=== PATIENT | female | born 1985 | race Caucasian/White ===

== ENCOUNTER 2016-09-06 17:35 | Emergency (ER) | payer SELFPAY ==
[~2016-09-06] VITALS: Ht 157.5 cm; Wt 67.3 kg
[~2016-09-06 17:35] MED LIST: IBUP600 PO
[2016-09-06 17:37] VITALS: BP 157/98; PULSE 98; RESP 16; TEMP 97.8; O2SAT 98
--- NOTE | 2016-09-06 18:12 | PD ---
Physical Exam Date Seen by Provider: Sep 06, 2016 Time Seen by Provider: 18:11 Narrative 31 yo female here for evaluation of left sided numbness, tingling to the left arm and leg. Going on for 5 days. Developed some occassional left sided "rib and breast" pain on and off. No other medical issues. No trauma. no history of this in the past. Vitals are stable in triage. Awaiting Bed placement. Data Data Last Documented VS Vital Signs Date Time Temp Pulse Resp B/P Pulse Ox O2 Delivery O2 Flow Rate FiO2 09/06/16 17:37 97.8 98 16 157/98 98 MDM Medical Record Reviewed: Yes Supervised Visit with TEX: No Trent Stephens Sep 06, 2016 18:12
[2016-09-06 19:56] VITALS: BP 147/95; PULSE 74; RESP 16; TEMP 98.1; O2SAT 100
[2016-09-06] MEDS ORDERED: IBUPROFEN 800 MG TAB PO ONE (20:15)
[2016-09-06] MEDS ORDERED: IBUP800T23 PO (20:16)
--- NOTE | 2016-09-06 20:17 | PD ---
HPI . Numbness and tingling of the left arm and leg Chief Complaint: Numbness/Tingling Time Seen by Provider: 19:59 Travel History International Travel<30 days: No Contact w/Intl Traveler<30days: No Traveled to known affect area: No History of Present Illness HPI Patient presents with chief complaint of left-sided numbness and tingling. Onset was a week ago. No modifying factors. She reports the onset of some left chest pain 2 days ago. It is a sharp pain underneath her left breast which is exacerbated by movement and relieved by rest. She rates the pain as 10/10. She states that she took 2 Tylenol for it yesterday but nothing today. PFSH Past Medical History Medical History: Denies Significant Hx ADHD: Yes Diminished Hearing: No Immunizations Current: No ?: Not LMP: 09/03/2016 : 0 Para: 1 Past Surgical History Surgical History: No Previous Surgery Social History Alcohol Use: Yes (occassionally) Tobacco Use: No Substance Use: No Allergies-Medications (Allergen,Severity, Reaction): Coded Allergies: No Known Allergies (Verified , 03/08/15) Reported Meds & Prescriptions Reported Meds & Active Scripts Active Ibuprofen 800 Mg Tab 800 Mg PO Q8H PRN Review of Systems Except as stated in HPI: all other systems reviewed are Neg General / Constitutional: No: Fever, Chills Cardiovascular: Positive: Chest Pain or Discomfort Respiratory: No: Shortness of Breath Gastrointestinal: No: Nausea, Vomiting Neurologic: Positive: Paresthesia, No: Weakness Physical Exam Narrative GENERAL: Awake and alert and in no acute distress. SKIN: Warm and dry. HEAD: Atraumatic. Normocephalic. EYES: Pupils equal and round. Extraocular movements are intact. ENT: No nasal bleeding or discharge. Mucous membranes pink and moist. NECK: Trachea midline. Neck is supple. CARDIOVASCULAR: Regular rate and rhythm. Heart sounds normal. RESPIRATORY: No accessory muscle use. Lungs are clear with full air movement throughout. Left chest wall has point tenderness beneath and lateral to the left breast. GASTROINTESTINAL: Abdomen soft, non-tender, nondistended. MUSCULOSKELETAL: No obvious deformities. No edema. NEUROLOGICAL: Awake and alert. No obvious cranial nerve deficits. Motor grossly within normal limits. Normal speech. She has full and equal muscle strength in all muscle groups of the upper extremities. PSYCHIATRIC: Appropriate mood and affect; insight and judgment normal. Data Data Last Documented VS Vital Signs Date Time Temp Pulse Resp B/P Pulse Ox O2 Delivery O2 Flow Rate FiO2 09/06/16 19:56 98.1 74 16 147/[address] Brain W/O Iv Contrast(Rout) (09/06/16 20:05) Ibuprofen (Motrin) (09/06/16 20:15) MDM Medical Decision Making Medical Screen Exam Complete: Yes Emergency Medical Condition: Yes Differential Diagnosis My differential diagnosis of paresthesias includes but is not limited to anxiety , radiculopathy, peripheral neuropathy, peripheral vascular disease, compartment syndrome Narrative Course Patient presents for the evaluation of left-sided numbness and left-sided chest wall pain. The left-sided numbness is been present for a week. The left-sided chest wall pain has been present for 2 days. She is basically not taken anything for the pain. Her neurological exam is intact. Her heart and lung exam is marked trouble only for reproducible left-sided chest wall tenderness. I have ordered ibuprofen for her chest wall pain. I have ordered a CT of her head although I don't really expect to find anything abnormal. CT>>Normal examination. Diagnosis Primary Impression: Left-sided chest wall pain Additional Impression: Paresthesia of left upper and lower extremity Referrals: [facility] Dept. Patient Instructions: Chest Wall Pain (ED), General Instructions, Paresthesia ( ED) Med/Other Pt SpecificInfo: Prescription(s) given Scripts Ibuprofen 800 Mg Nun316 Mg PO Q8H PRN (Pain/Inflammation) #60 TAB Ref 0 Prov:Marium Cordero MD 09/06/16 Disposition: DISCHARGE HOME Condition: Stable Marium Cordero MD Sep 06, 2016 20:17
--- NOTE | 2016-09-06 21:14 | RADRPT ---
EXAM DATE/TIME: 09/06/2016 20:50 [facility] COMPARISON: No previous studies available for comparison. INDICATIONS : Patient complains of left arm and leg numbness for 5 days. RADIATION DOSE: 56.35 CTDIvol (mGy) MEDICAL HISTORY : None SURGICAL HISTORY : None. ENCOUNTER: Initial ACUITY: 4 - 6 days PAIN SCALE: 0/10 LOCATION: cranial TECHNIQUE: Multiple contiguous axial images were obtained of the head. Using automated exposure control and adj ustment of the mA and/or kV according to patient size, radiation dose was kept as low as reasonably a chievable to obtain optimal diagnostic quality images. DICOM format image data is available electro nically for review and comparison. FINDINGS: CEREBRUM: The ventricles are normal for age. No evidence of midline shift, mass lesion, hemorrhage or acute in farction. No extra-axial fluid collections are seen. POSTERIOR FOSSA: The cerebellum and brainstem are intact. The 4th ventricle is midline. The cerebellopontine angle i s unremarkable. EXTRACRANIAL: The visualized portion of the orbits is intact. SKULL: The calvaria is intact. No evidence of skull fracture. CONCLUSION: Normal examination. Pablo Saeed Jr., MD on September 06, 2016 at 21:12 Board Certified Radiologist. This report was verified electronically.
== END 2016-09-06 21:31 | disposition home or self-care (01) ==
LOC: NEPD 17:35
DX: R07.89 Other chest pain (principal); R20.2 Paresthesia of skin
CPT/HCPCS: 70450; 99285